=== PATIENT | female | born 1950 | race Caucasian/White ===

== ENCOUNTER → 2017-06-20 | Outpatient (CLI) | payer MEDICARE ==
--- NOTE | 2017-06-20 17:16 | REP ---
REASON: Pain and swelling distal metatarsals. PRIORS: None. Degenerative changes are seen throughout the foot. These changes are mild to moderate. Prominent marginal osteophytes are seen arising from the head of the first metatarsal. There is no evidence of an acute fracture. IMPRESSION: Chronic changes. Signed by Filippo Moss DO 06/20/2017 05:46 P
== END ==
LOC: M RAD 11:13
PROVIDERS: ATTEND Chiropractor
DX: R22.42 Localized swelling, mass and lump, left lower limb (principal)

== ENCOUNTER → 2021-05-24 | Outpatient (REF) | payer MEDICARE | LOC: M LAB REF 21:27 | PROVIDERS: ATTEND Physician Assistant Medical | DX: M10.9 Gout, unspecified (principal) ==